=== PATIENT | male | born 1995 | race Caucasian/White ===

== ENCOUNTER 2021-01-20 04:05 | Emergency (ER) | payer BC ==
[~2021-01-20] VITALS: Ht 165.1 cm; Wt 79.4 kg
--- NOTE | 2021-01-20 04:15 | NUR ---
Dr. Vuong at bedside for MSE.
[2021-01-20] MEDS: LIDOCAINE HCL 2% 20 ML VIAL IJ ONE (04:29)
[2021-01-20] MEDS: SODIUM BICARBONATE 4.2 % (NEUT) 5 ML VIAL TP ONE (04:29)
[2021-01-20] MEDS ORDERED: CEPH500C2 PO (04:30)
[2021-01-20] MEDS ORDERED: CEFTRIAXONE 1 G VIAL ONE (04:36)
[2021-01-20] MEDS ORDERED: LIDOCAINE HCL 1% 20 ML VIAL ONE (04:37)
[2021-01-20] MEDS ORDERED: TDAP DIPH,PERTUSS,TET VAC/PF 0.5 ML DISP.SYRIN IM ONE (04:37)
[2021-01-20] MEDS: CEFTRIAXONE 1 G VIAL IM ONE (04:42)
[2021-01-20 05:27] VITALS: BP 129/75
--- NOTE | 2021-01-20 05:27 | NUR ---
Patient discharged to home in stable condition. Written and verbal after care instructions given. Patient verbalizes understanding of instructions. Stressed follow up or return to ER for worsening s/s. Patient out of ER with steady gait, no acute signs of distress, VSS, all belongings taken.
[2021-01-20] MEDS: TDAP DIPH,PERTUSS,TET VAC/PF 0.5 ML DISP.SYRIN IM ONE (05:28)
== END 2021-01-20 05:27 | disposition home or self-care (01) ==
LOC: ER 04:07
DX: S61.011A Laceration without foreign body of right thumb without damage to nail, initial encounter (principal); W26.8XXA Contact with other sharp object(s), not elsewhere classified, initial encounter; Y93.83 Activity, rough housing and horseplay; Y92.89 Other specified places as the place of occurrence of the external cause; Y99.8 Other external cause status; F10.129 Alcohol abuse with intoxication, unspecified
CPT/HCPCS: 12042; 90471; 90715; 99284; J0696; J3490 ×2; A4217; A4663